=== PATIENT | female | born 1985 | race Caucasian/White ===

== ENCOUNTER 2020-11-09 06:20 | Day surgery (SDC) | payer OTHER, SELFPAY ==
[2020-11-07 13:25] LABS: BILIRUBIN,URINE NEGATIVE (NEGATIVE); BLOOD, URINE NEGATIVE (NEGATIVE); CLARITY/URINE CLEAR (CLEAR); COLOR,URINE YELLOW (YELLOW); GLUCOSE,URINE NEGATIVE (NEGATIVE); KETONES,URINE NEGATIVE (NEGATIVE); LEUKOCYTE ESTERASE ,URINE NEGATIVE (NEGATIVE); NITRITE, URINE NEGATIVE (NEGATIVE); PROTEIN URINE NEGATIVE (NEGATIVE); UROBILINOGEN,URINE 0.2 (0.2-1.0)
[2020-11-07 13:28] LABS: BASOPHILS % (AUTO) 0.7 % (0.0-2.0); EOSINOPHILS # (AUTO) 0.1 K/uL (0.0-0.4); EOSINOPHILS % (AUTO) 1.5 % (0.0-4.0); HEMATOCRIT 40.1 % (36-48); HEMOGLOBIN 13.8 g/dL (12.0-16.0); LYMPHOCYTES % (AUTO) 29.2 % (20.5-51.5); MEAN CORPUSCULAR HEMOGLOBIN 31 pg (27-31); MEAN CORPUSCULAR HGB CONC 34 % (32-36); MEAN CORPUSCULAR VOLUME 90 fL (79.0-98.0); MONOCYTES # (AUTO) 0.7 K/uL (0.0-1.0); MONOCYTES % (AUTO) 10.3 % (1.7-9.3); NEUTROPHILS % (AUTO) 58.3 % (40.0-70.0); PLATELET COUNT (AUTO) 273 K/uL (130-430); RED BLOOD CELL COUNT(AUTO) 4.46 MIL/uL (4.2-6.2); RED CELL DISTRIBUTION WIDTH 13.1 % (9.0-15.0); WHITE BLOOD COUNT (AUTO) 6.8 K/uL (4.8-10.8)
[~2020-11-09] VITALS: Ht 157.5 cm; Wt 83.0 kg
[2020-11-09] MEDS ORDERED: MIDAZOLAM HCL 5 MG/5 ML VIAL IVP ONE (08:00)
[2020-11-09] MEDS ORDERED: PROPOFOL 200MG/ 20ML VIAL (DIPRIVAN) IV ONE (08:00)
[2020-11-09] MEDS ORDERED: NS 1000 ML IV.SOLN IV ONE (08:00)
[2020-11-09] MEDS ORDERED: ONDANSETRON HCL 4 MG/2 ML VIAL IVP ONE (08:00)
[2020-11-09] MEDS ORDERED: CEFAZOLIN 2 GM IVPB PREMIX 50 ML IV ONE (08:00)
[2020-11-09] MEDS ORDERED: SEVOFLURANE 15 MIN GAS INH ONE (08:00)
[2020-11-09] MEDS ORDERED: DEXAMETHASONE SOD PHOSPHATE 4 MG/ML VIAL IVP ONE (08:00)
[2020-11-09] MEDS ORDERED: LR 1,000 ML IV.SOLN IV ONE (08:00)
[2020-11-09] MEDS ORDERED: LIDOCAINE 2%, 20 ML MDV INJ ONE (08:00)
[2020-11-09] MEDS ORDERED: fentaNYL CITRATE 250 MCG/5 ML AMP IV ONE (08:00)
[2020-11-09] MEDS ORDERED: ONDANSETRON HCL 4 MG/2 ML VIAL IVP PRN ×2 (08:30→09:00)
[2020-11-09] MEDS ORDERED: MEPERIDINE HCL/PF 25 MG/ML DISP.SYRIN IVP PRN (08:30)
[2020-11-09] MEDS ORDERED: HYDROmorphone 1 MG/ML INJ. CARTRIDGE IVP PRN (08:30)
[2020-11-09] MEDS ORDERED: LR 1,000 ML IV SCH (08:30)
[2020-11-09] MEDS ORDERED: METOCLOPRAMIDE HCL 10 MG/2 ML VIAL IVP PRN (08:30)
[2020-11-09] MEDS ORDERED: MIDAZOLAM HCL 2 MG/2 ML VIAL (VERSED) IVP PRN (08:30)
[2020-11-09] MEDS ORDERED: OXYCODONE/ACETAMINOPHEN 5-325 TABLET PO PRN (09:00)
[2020-11-09] MEDS ORDERED: HYDROcodone/ACETAMIN 5-325 MG TAB (NORCO/ VICODIN) PO PRN (09:00)
[2020-11-09] MEDS ORDERED: HYDROmorphone 1 MG/ML INJ. CARTRIDGE ONE (09:09)
[2020-11-09] MEDS: HYDROmorphone 1 MG/ML INJ. CARTRIDGE IVP PRN ×2 (09:15→09:25)
[2020-11-09 16:40] VITALS: BP_SYST 116
== END 2020-11-09 11:20 | disposition home or self-care (01) ==
LOC: SMU 06:20 → SDS 06:20
PROVIDERS: ATTEND Specialist
DX: N92.6 Irregular menstruation, unspecified (principal); R93.89 Abnormal findings on diagnostic imaging of other specified body structures; N84.0 Polyp of corpus uteri; R14.0 Abdominal distension (gaseous); N94.89 Other specified conditions associated with female genital organs and menstrual cycle; E66.9 Obesity, unspecified
CPT/HCPCS: 36415; 58562; 81003; 84703; 85025; 87426; 88305; J0690; J1100; J1170; J2001; J2250; J2405; J2704; J3010; J7030; J7120